=== PATIENT | female | born 1980 | race Caucasian/White ===

== ENCOUNTER → 2017-08-16 | Outpatient (REF) ==
[~2017-08-16] MED LIST: ESC10 PO; ESCI5TAB10 PO
[2017-08-16 08:12] LABS: LDL CHOLESTEROL 104 mg/dl
== END ==
DX: Z02.9 Encounter for administrative examinations, unspecified (principal)

== ENCOUNTER → 2018-04-12 | Outpatient (REF) ==
[~2018-04-12] MED LIST changes: +POLY10DR20 OP
[2018-04-12 08:31] LABS: LDL CHOLESTEROL 95 mg/dl
== END ==
DX: Z02.9 Encounter for administrative examinations, unspecified (principal)